=== PATIENT | male | born 1990 | race American Indian/Alaskan Native ===

== ENCOUNTER 2018-09-18 07:57 | Emergency (ER) | payer OTHER ==
[2018-09-18 08:02] VITALS: BP 139/85
--- NOTE | 2018-09-18 08:42 | Emergency Department Report ---
HPI - General Chief Complaint: Sore Throat Time Seen by Provider: 09/18/18 08:20 - HPI HPI: 27-year-old -[place] male presents to the emergency department with a 2 day history of a sore throat. He thought that originally it was secondary to when his was cleaning his ears with some peroxide. He has some pain with swallowing but is able to do so. He denies any fever, cough, shortness of breath, rash. No past medical history. He has not taken anything for his symptoms prior to arrival. ED Past Medical Hx - Past Medical History Previous Medical History?: No - Surgical History Past Surgical History?: No - Social History Smoking Status: Never Smoker Substance Use Type: None - Medications Home Medications: Home Medications Medication Instructions Recorded Confirmed Last Taken Type Amoxicillin/Potassium Clav 1 each PO BID #20 tablet 09/18/18 Unknown Rx [Augmentin 875-125 Tablet] ED Review of Systems ROS: Stated complaint: SORE THROAT Other details as noted in HPI Constitutional: denies: chills, fever Eyes: denies: eye pain, vision change ENT: throat pain. denies: ear pain Respiratory: denies: cough, shortness of breath Cardiovascular: denies: chest pain, palpitations Gastrointestinal: denies: nausea, vomiting Genitourinary: denies: dysuria, discharge Musculoskeletal: denies: back pain, arthralgia Skin: denies: rash, lesions Neurological: denies: headache, weakness Physical Exam - Physical Exam Vital Signs: Vital Signs 09/18/18 08:01 Temperature 98.6 F Pulse Rate 75 Respiratory 18 Rate Blood Pressure 139/85 O2 Sat by Pulse 99 Oximetry Physical Exam: GENERAL: The patient is well-developed well-nourished. HENT: Normocephalic. Atraumatic. Patient has moist mucous membranes. There is bilateral tonsillar hypertrophy, erythema and exudates. No drooling or trismus. EYES: Extraocular motions are intact. Pupils equal reactive to light bilaterally. NECK: Supple. Trachea is midline. Left submandibular tender but mobile lymphadenopathy. CHEST/LUNGS: Clear to auscultation. There is no respiratory distress noted. HEART/CARDIOVASCULAR: Regular. There is no tachycardia. There is no murmur. ABDOMEN: Abdomen is soft, nontender. Patient has normal bowel sounds. SKIN: Skin is warm and dry. NEURO: The patient is awake, alert, and oriented. The patient is cooperative. The patient has no focal neurologic deficits. The patient has normal speech. MUSCULOSKELETAL: There is no tenderness or deformity. There is no evidence of acute injury. ED Course Vital Signs 09/18/18 08:01 Temperature 98.6 F Pulse Rate 75 Respiratory 18 Rate Blood Pressure 139/85 O2 Sat by Pulse 99 Oximetry ED Medical Decision Making - Medical Decision Making Patient presents with a few days of a sore throat. He has tonsillar hypertrophy, erythema and exudates concerning for strep pharyngitis. No drooling or trismus. Patient will be started on Augmentin. We discussed hand washing and infection control. He was given referrals for primary care. He will return to the ER with any worsening of his symptoms or any acute distress. - Differential Diagnosis strep pharyngitis, viral pharyngitis, mononucleosis Critical Care Time: No Critical care attestation.: If time is entered above; I have spent that time in minutes in the direct care of this critically ill patient, excluding procedure time. ED Disposition Clinical Impression: Strep pharyngitis Disposition: TO HOME OR SELFCARE Is pt being admited?: No Condition: Stable Instructions: Strep Throat (ED) Additional Instructions: Please follow up with a primary care physician in the next few days. Take the antibiotics as prescribed. Please be cautious around your family or coworkers so that you do not spread the infection. Do not share any food or drink with anyone. Make sure you doing a lot of handwashing. Return to the emergency Department with any worsening of your symptoms or any acute distress. Prescriptions: Amoxicillin/Potassium Clav [Augmentin 875-125 Tablet] 1 each PO BID #20 tablet Referrals: SAROJ BRAVO MD [Staff Physician] - 2-3 Days [facility] [Outside] - 2-3 Days Forms: Work/School Release Form(ED) Time of Disposition: 08:42
== END 2018-09-18 09:02 | disposition home or self-care (01) ==
LOC: ED 07:57
DX: J02.0 Streptococcal pharyngitis (principal)